=== PATIENT | female | born 1945 | race Asian ===

== ENCOUNTER 2022-07-02 12:06 | Observation (INO) | payer OTHER ==
[2022-07-02 12:19] VITALS: BMI 27.1
[2022-07-02] MEDS ORDERED: dilTIAZem HCL 50 MG/10 ML - 10 ML VIAL IVPUSH ONE ×2 (12:36→12:54)
[2022-07-02] MEDS ORDERED: dilTIAZem HCL 50 MG/10 ML - 10 ML VIAL ONE (12:36)
[2022-07-02] MEDS ORDERED: dilTIAZem HCL 30 MG TABLET ONE (12:46)
[2022-07-02] MEDS ORDERED: dilTIAZem HCL 30 MG TABLET PO ONE (12:48)
[2022-07-02 13:05] LABS: BASO % 0.7 % (0-2.0); EOS % 0.2 % (0-4.5); HEMATOCRIT 37.5 % (32.4-45.2); HEMOGLOBIN 12.5 GM/dL (10.7-15.3); MCH 28.9 pg (25.7-33.7); MCHC 33.3 g/dl (32.0-36.0); MEAN CELL VOLUME 86.7 fl (80-96); MEAN PLT VOLUME 7.8 fl (7.5-11.1); MONO % 4.7 % (3.8-10.2); NEUT % 82.4 % (42.8-82.8); PLATELET COUNT 330 10^3/uL (134-434); RBC 4.32 M/mm3 (3.60-5.2); RDW 14.5 % (11.6-15.6)
[2022-07-02 13:11] LABS: PROTHROMBIN TIME (PATIENT) 11.6 SEC (9.7-13.0)
[2022-07-02 13:30] LABS: POTASSIUM 4.6 mmol/L (3.5-5.1)
[2022-07-02 13:32] LABS: ALBUMIN 3.8 g/dl (3.4-5.0); BLOOD UREA NITROGEN 20.2 mg/dL (7-18); CALCIUM 8.7 mg/dL (8.5-10.1); MAGNESIUM 2.1 mg/dL (1.8-2.4)
[2022-07-02 13:35] LABS: CREATININE 1.2 mg/dL (0.55-1.3)
[2022-07-02 13:37] LABS: BILIRUBIN,TOTAL 1.1 mg/dL (0.2-1); TOT PROT 7.8 g/dl (6.4-8.2)
[2022-07-02 13:40] LABS: N-TERMINAL BNP 5599.1 pg/ml (5-450)
[2022-07-02] MEDS ORDERED: ASPIRIN 325 MG ENTERIC COATED TABLET (FP) PO ONE (13:47)
[2022-07-02] MEDS ORDERED: ASPIRIN 325 MG ENTERIC COATED TABLET (FP) ONE (14:00)
[2022-07-02] MEDS ORDERED: LISINOPRIL 20 MG TABLET PO ONE ×2 (15:16→15:19)
[2022-07-02] MEDS ORDERED: LISINOPRIL 20 MG TABLET ONE (15:21)
[2022-07-02] MEDS ORDERED: FUROSEMIDE 40 MG/4 ML INJECTABLE VIAL IVPUSH ONE (18:15)
[2022-07-02] MEDS ORDERED: FUROSEMIDE 40 MG/4 ML INJECTABLE VIAL ONE (18:24)
[2022-07-02] MEDS ORDERED: APIXABAN 5 MG TABLET PO SCH (22:00)
[2022-07-02] MEDS ORDERED: APIXABAN 2.5 MG TABLET PO SCH (22:00)
[2022-07-03] MEDS: dilTIAZem HCL 30 MG TABLET PO SCH ×2 (00:45→11:52)
[2022-07-03] MEDS: INSULIN SLIDING SCALE (NOVOLOG) 1 VIAL SQ SCH ×3 (00:46→11:53)
[2022-07-03 06:52] VITALS: TEMP 99
[2022-07-03 08:43] LABS: BASO % 1.3 % (0-2.0); EOS % 2.1 % (0-4.5); HEMATOCRIT 37.3 % (32.4-45.2); HEMOGLOBIN 12.7 GM/dL (10.7-15.3); LYMPH % 25.9 % (8-40); MCH 29.2 pg (25.7-33.7); MEAN PLT VOLUME 8.1 fl (7.5-11.1); MONO % 8.6 % (3.8-10.2); NEUT % 62.1 % (42.8-82.8); PLATELET COUNT 317 10^3/uL (134-434); RBC 4.34 M/mm3 (3.60-5.2); RDW 14.1 % (11.6-15.6); WHITE BLOOD COUNT 8.5 K/mm3 (4.0-10.0)
[2022-07-03 08:56] LABS: CHLORIDE 111 mmol/L (98-107); POTASSIUM 4.1 mmol/L (3.5-5.1); SODIUM 143 mmol/L (136-145)
[2022-07-03 08:58] LABS: CALCIUM 8.8 mg/dL (8.5-10.1)
[2022-07-03 08:59] LABS: ANION GAP 5 MMOL/L (8-16); BLOOD UREA NITROGEN 35.2 mg/dL (7-18); CO2 27 mmol/L (21-32); GLUCOSE,RANDOM 121 mg/dL (74-106)
[2022-07-03 09:02] LABS: CREATININE 1.6 mg/dL (0.55-1.3)
[2022-07-03 09:04] LABS: CHOLESTEROL 222 mg/dL (50-200)
[2022-07-03 09:06] LABS: LDL CHOLESTEROL (ONLY SJRH) 140 mg/dL (5-100)
[2022-07-03 09:08] LABS: HDL CHOLESTEROL 57 mg/dL (40-60)
[2022-07-03] MEDS ORDERED: FUROSEMIDE 40 MG/4 ML INJECTABLE VIAL IVPUSH SCH (10:00)
[2022-07-03] MEDS ORDERED: ASPIRIN COATED 81 MG TABLET.EC PO SCH (10:00)
[2022-07-03 13:39] VITALS: BP 140/91; PULSE 97; RESP 22
== END 2022-07-03 14:10 | disposition left against medical advice (07) ==
LOC: JER 12:06 → INTOOBSV 16:07 → JERBED 16:07 → UNDOADMOB 16:07 → JERBED 18:13
PROVIDERS: ADMIT Internal Medicine; ATTEND Internal Medicine
PROC: 3E033GC Introduction of Other Therapeutic Substance into Peripheral Vein, Percutaneous Approach (ICD-10-PCS; principal; 2022-07-02)
DX: I48.91 Unspecified atrial fibrillation (principal); N63.0 Unspecified lump in unspecified breast; I16.0 Hypertensive urgency; F32.A Depression, unspecified; Z88.0 Allergy status to penicillin; J90 Pleural effusion, not elsewhere classified; Z29.8 Encounter for other specified prophylactic measures; R73.9 Hyperglycemia, unspecified
CPT/HCPCS: 0241U-QW; 36415; 71045-TC-FY; 71275-TC; 80048; 80053; 80061; 82550; 83036; 83735; 83880; 84443; 84484; 85025; 85610; 93005; 93010; 96365; 96367; 96375; 96376; 99285-25; G0378; Q9967

== ENCOUNTER 2022-07-09 14:20 | Inpatient (IN) | payer OTHER ==
[2022-07-09 14:36] VITALS: BMI 25.0
[2022-07-09] MEDS ORDERED: APIXABAN 2.5 MG TABLET PO ONE (15:26)
[2022-07-09] MEDS ORDERED: METOPROLOL TARTRATE 5 MG/5 ML VIAL IVPUSH ONE (15:28)
[2022-07-09] MEDS ORDERED: APIXABAN 2.5 MG TABLET ONE (15:35)
[2022-07-09] MEDS ORDERED: METOPROLOL TARTRATE 5 MG/5 ML VIAL ONE (15:35)
[2022-07-09] MEDS ORDERED: metoPROLOL SUCCINATE 25 MG TAB.SR.24H (FP) PO ONE (15:49)
[2022-07-09] MEDS ORDERED: METOPROLOL TARTRATE 25 MG TABLET (FP) ONE (15:49)
[2022-07-09 16:24] LABS: BASO % 1.5 % (0-2.0); EOS % 0.4 % (0-4.5); HEMATOCRIT 34.3 % (32.4-45.2); HEMOGLOBIN 11.4 GM/dL (10.7-15.3); LYMPH % 19.7 % (8-40); MCH 28.7 pg (25.7-33.7); MCHC 33.3 g/dl (32.0-36.0); MEAN CELL VOLUME 86.3 fl (80-96); MEAN PLT VOLUME 8.2 fl (7.5-11.1); MONO % 5.9 % (3.8-10.2); NEUT % 72.5 % (42.8-82.8); PLATELET COUNT 294 10^3/uL (134-434); RBC 3.97 M/mm3 (3.60-5.2); RDW 14.4 % (11.6-15.6); WHITE BLOOD COUNT 6.9 K/mm3 (4.0-10.0)
[2022-07-09 16:35] LABS: ACTIVATED PTT 29.6 SECONDS (25.2-36.5); INR 1.1 (0.83-1.09); PROTHROMBIN TIME (PATIENT) 12.7 SEC (9.7-13.0)
[2022-07-09] MEDS ORDERED: DEXAMETHASONE SOD PHOSPHATE 10 MG/1 ML VIAL IVPUSH ONE (16:40)
[2022-07-09] MEDS ORDERED: IPRATROPIUM BR 0.02% 0.5 MG/2.5 ML VIAL.NEB. NEB ONE ×2 (16:40→16:45)
[2022-07-09 16:45] LABS: POTASSIUM 4.5 mmol/L (3.5-5.1)
[2022-07-09] MEDS ORDERED: MAGNESIUM SULF 50% (8.12 MEQ/2 ML-1 GM VIAL) IVPB ONE (16:45)
[2022-07-09] MEDS ORDERED: DEXAMETHASONE SOD PHOSPHATE 10 MG/1 ML VIAL ONE (16:45)
[2022-07-09] MEDS ORDERED: MAGNESIUM SULFATE IN WATER 2 GM/50 ML IVPB IVPB ONE (16:46)
[2022-07-09 16:47] LABS: ALBUMIN 3.4 g/dl (3.4-5.0); CALCIUM 8.3 mg/dL (8.5-10.1)
[2022-07-09 16:50] LABS: CREATININE 1.3 mg/dL (0.55-1.3)
[2022-07-09 16:51] LABS: BILIRUBIN,TOTAL 1.1 mg/dL (0.2-1)
[2022-07-09 16:55] LABS: N-TERMINAL BNP 8937.3 pg/ml (5-450)
[2022-07-09] MEDS: APIXABAN 5 MG TABLET PO SCH (22:56)
[2022-07-10] MEDS ORDERED: LORazepam 2 MG/ML SDV VIAL IM ONE (03:59)
[2022-07-10] MEDS ORDERED: HALOPERIDOL LACTATE 5 MG/ML IM ONE (04:14)
[2022-07-10] MEDS ORDERED: LORazepam 2 MG/ML SDV VIAL IVPUSH ONE (04:16)
[2022-07-10] MEDS ORDERED: ALBUTEROL SO4 2.5/IPRATROPIUM 0.5 INH SOL 3 ML VIAL.NEB. NEB ONE (04:21)
[2022-07-10] MEDS ORDERED: LORazepam 2 MG/ML SDV VIAL IVPUSH PRN ×2 (04:24→19:05)
[2022-07-10 07:51] LABS: BASO % 0.3 % (0-2.0); HEMATOCRIT 33.6 % (32.4-45.2); HEMOGLOBIN 11.5 GM/dL (10.7-15.3); LYMPH % 11.4 % (8-40); MCH 29.5 pg (25.7-33.7); MCHC 34.2 g/dl (32.0-36.0); MEAN CELL VOLUME 86.4 fl (80-96); MEAN PLT VOLUME 8.7 fl (7.5-11.1); MONO % 5.3 % (3.8-10.2); PLATELET COUNT 274 10^3/uL (134-434); RDW 14.1 % (11.6-15.6); WHITE BLOOD COUNT 6.2 K/mm3 (4.0-10.0)
[2022-07-10 08:11] LABS: POTASSIUM 4.9 mmol/L (3.5-5.1)
[2022-07-10 08:14] LABS: MAGNESIUM 2.9 mg/dL (1.8-2.4)
[2022-07-10 08:18] LABS: PHOSPHOROUS 5.7 mg/dL (2.5-4.9)
[2022-07-10 08:25] LABS: CALCIUM 8.9 mg/dL (8.5-10.1)
[2022-07-10 08:26] LABS: BLOOD UREA NITROGEN 39.8 mg/dL (7-18)
[2022-07-10 08:29] LABS: CREATININE 1.8 mg/dL (0.55-1.3)
[2022-07-10] MEDS: APIXABAN 5 MG TABLET PO SCH ×2 (10:19→22:04)
[2022-07-10] MEDS: amLODIPine BESYLATE 2.5 MG TABLET (FP) PO SCH (11:27)
[2022-07-10] MEDS: ALBUTEROL SO4 2.5/IPRATROPIUM 0.5 INH SOL 3 ML VIAL.NEB. NEB SCH ×3 (11:35→20:16)
[2022-07-10] MEDS: methylPREDNISolone NA SUCC 40 MG/1 ML VIAL IVPUSH SCH ×2 (12:09→17:50)
[2022-07-10] MEDS ORDERED: FUROSEMIDE 40 MG/4 ML INJECTABLE VIAL IVPUSH SCH (18:30)
[2022-07-11] MEDS: methylPREDNISolone NA SUCC 40 MG/1 ML VIAL IVPUSH SCH ×2 (03:19→09:39)
[2022-07-11 07:07] LABS: HEMATOCRIT 32.2 % (32.4-45.2); HEMOGLOBIN 10.9 GM/dL (10.7-15.3); MCH 29.1 pg (25.7-33.7); MEAN CELL VOLUME 85.7 fl (80-96); MEAN PLT VOLUME 7.6 fl (7.5-11.1); PLATELET COUNT 284 10^3/uL (134-434); RBC 3.76 M/mm3 (3.60-5.2); RDW 14.6 % (11.6-15.6); WHITE BLOOD COUNT 11.6 K/mm3 (4.0-10.0)
[2022-07-11] MEDS: ALBUTEROL SO4 2.5/IPRATROPIUM 0.5 INH SOL 3 ML VIAL.NEB. NEB SCH (07:30)
[2022-07-11 07:32] LABS: POTASSIUM 4.7 mmol/L (3.5-5.1)
[2022-07-11 07:44] LABS: CALCIUM 8.9 mg/dL (8.5-10.1)
[2022-07-11 07:45] LABS: ALBUMIN 3.4 g/dl (3.4-5.0); BLOOD UREA NITROGEN 48.2 mg/dL (7-18); MAGNESIUM 2.5 mg/dL (1.8-2.4)
[2022-07-11 07:48] LABS: CREATININE 1.6 mg/dL (0.55-1.3); PHOSPHOROUS 3.5 mg/dL (2.5-4.9)
[2022-07-11 07:49] LABS: BILIRUBIN,TOTAL 0.5 mg/dL (0.2-1)
[2022-07-11] MEDS: amLODIPine BESYLATE 2.5 MG TABLET (FP) PO SCH (09:39)
[2022-07-11] MEDS: APIXABAN 5 MG TABLET PO SCH ×2 (09:39→21:14)
[2022-07-11] MEDS: ALBUTEROL SO4 2.5/IPRATROPIUM 0.5 INH SOL 3 ML VIAL.NEB. NEB PRN (20:10)
[2022-07-12 08:22] LABS: HEMATOCRIT 30.6 % (32.4-45.2); HEMOGLOBIN 10.4 GM/dL (10.7-15.3); MCH 29.3 pg (25.7-33.7); MEAN CELL VOLUME 86.2 fl (80-96); PLATELET COUNT 261 10^3/uL (134-434); RBC 3.55 M/mm3 (3.60-5.2); RDW 14.5 % (11.6-15.6); WHITE BLOOD COUNT 12.9 K/mm3 (4.0-10.0)
[2022-07-12 08:37] LABS: ALBUMIN 3.1 g/dl (3.4-5.0); BLOOD UREA NITROGEN 41.6 mg/dL (7-18); CALCIUM 8.6 mg/dL (8.5-10.1); MAGNESIUM 2.3 mg/dL (1.8-2.4)
[2022-07-12 08:40] LABS: CREATININE 1.3 mg/dL (0.55-1.3)
[2022-07-12 08:41] LABS: PHOSPHOROUS 3.6 mg/dL (2.5-4.9)
[2022-07-12 08:42] LABS: BILIRUBIN,TOTAL 0.4 mg/dL (0.2-1); TOT PROT 6.4 g/dl (6.4-8.2)
[2022-07-12] MEDS: amLODIPine BESYLATE 2.5 MG TABLET (FP) PO SCH (09:29)
[2022-07-12] MEDS: methylPREDNISolone NA SUCC 40 MG/1 ML VIAL IVPUSH SCH (09:30)
[2022-07-12] MEDS: APIXABAN 5 MG TABLET PO SCH ×2 (09:30→22:05)
[2022-07-12] MEDS: LISINOPRIL 5 MG TABLET PO SCH (13:53)
[2022-07-12] MEDS: ALBUTEROL SO4 2.5/IPRATROPIUM 0.5 INH SOL 3 ML VIAL.NEB. NEB PRN (20:24)
[2022-07-13 05:42] VITALS: RESP 20
[2022-07-13 07:21] LABS: HEMATOCRIT 35.3 % (32.4-45.2); HEMOGLOBIN 11.9 GM/dL (10.7-15.3); MCH 29.2 pg (25.7-33.7); MCHC 33.9 g/dl (32.0-36.0); MEAN CELL VOLUME 86.4 fl (80-96); MEAN PLT VOLUME 8.1 fl (7.5-11.1); PLATELET COUNT 303 10^3/uL (134-434); RBC 4.08 M/mm3 (3.60-5.2); RDW 14.4 % (11.6-15.6); WHITE BLOOD COUNT 17.6 K/mm3 (4.0-10.0)
[2022-07-13 08:08] LABS: POTASSIUM 4.4 mmol/L (3.5-5.1)
[2022-07-13 08:13] LABS: BLOOD UREA NITROGEN 38.5 mg/dL (7-18); CALCIUM 8.5 mg/dL (8.5-10.1)
[2022-07-13 08:17] LABS: CREATININE 1.3 mg/dL (0.55-1.3)
[2022-07-13] MEDS: ALBUTEROL SO4 2.5/IPRATROPIUM 0.5 INH SOL 3 ML VIAL.NEB. NEB PRN (08:17)
[2022-07-13] MEDS: LISINOPRIL 5 MG TABLET PO SCH (09:41)
[2022-07-13] MEDS: APIXABAN 5 MG TABLET PO SCH ×2 (09:41→22:14)
[2022-07-13] MEDS: methylPREDNISolone NA SUCC 40 MG/1 ML VIAL IVPUSH SCH (09:41)
[2022-07-13 09:57] LABS: EPI CELLS 0 /uL (0-25.1); HYALINE CASTS 0 /uL (0-3.1); URINE APPEARANCE CLEAR; URINE BACTERIA 128 /uL (0-1359); URINE BILIRUBIN NEGATIVE (NEGATIVE); URINE COLOR YELLOW; URINE GLUCOSE (UA) NEGATIVE (NEGATIVE); URINE KETONE NEGATIVE (NEGATIVE); URINE LEUK ESTERASE 2+ (NEGATIVE); URINE NITRITE NEGATIVE (NEGATIVE); URINE PROTEIN NEGATIVE (NEGATIVE); URINE RBC 50 /uL (0-23.9); URINE UROBILINOGEN 0.2 mg/dL (0.2-1.0); URINE WBC 561 /uL (0-25.8)
[2022-07-13] MEDS ORDERED: dilTIAZem HCL 30 MG TABLET PO ONE ×2 (12:02→22:00)
[2022-07-14] MEDS: methylPREDNISolone NA SUCC 40 MG/1 ML VIAL IVPUSH SCH (09:00)
[2022-07-14] MEDS: APIXABAN 5 MG TABLET PO SCH (09:00)
[2022-07-14] MEDS: LISINOPRIL 5 MG TABLET PO SCH (09:00)
[2022-07-14] MEDS ORDERED: REGADENOSON 0.4 MG/5 ML PRE-FILLED SYRINGE IVPUSH ONE ×2 (09:15→10:00)
[2022-07-14 16:46] VITALS: BP 152/70; PULSE 85; TEMP 98.3
== END 2022-07-14 17:09 | disposition home or self-care (01) | DRG 291 ==
LOC: JER 14:20 → JERBED 15:22 → J4W 21:28
PROVIDERS: ADMIT Internal Medicine; ATTEND Internal Medicine
DX: I13.0 Hypertensive heart and chronic kidney disease with heart failure and stage 1 through stage 4 chronic kidney disease, or unspecified chronic kidney disease (principal); G93.41 Metabolic encephalopathy; I50.33 Acute on chronic diastolic (congestive) heart failure; I24.8 Other forms of acute ischemic heart disease; N17.9 Acute kidney failure, unspecified; N39.0 Urinary tract infection, site not specified; N18.9 Chronic kidney disease, unspecified; F20.9 Schizophrenia, unspecified; F31.9 Bipolar disorder, unspecified; I25.10 Atherosclerotic heart disease of native coronary artery without angina pectoris; I48.91 Unspecified atrial fibrillation; Z91.148 Patient's other noncompliance with medication regimen for other reason; R94.31 Abnormal electrocardiogram [ECG] [EKG]; R73.03 Prediabetes
CPT/HCPCS: 0241U-QW; 36415; 71045-TC-FY; 76856-TC; 78452-TC; 80048; 80053; 80061; 81003; 83036; 83735; 83880; 84100; 84443; 84484; 85025; 85027; 85610; 85730; 87086; 87186; 93005; 93010; 93017; 93306-TC; 94010; 94640; 94761; 99285-25; A9502; J1100; J2785

== ENCOUNTER → 2022-08-19 | Day surgery (SDC) | payer OTHER | END | disposition home or self-care (01) | LOC: FRADUS-SUR 11:23 | PROVIDERS: ATTEND Family Medicine | PROC: 0HBV3ZX Excision of Bilateral Breast, Percutaneous Approach, Diagnostic (ICD-10-PCS; principal; 2022-08-19) | DX: C50.412 Malignant neoplasm of upper-outer quadrant of left female breast (principal); Z17.1 Estrogen receptor negative status [ER-]; N60.31 Fibrosclerosis of right breast; N63.10 Unspecified lump in the right breast, unspecified quadrant; N63.23 Unspecified lump in the left breast, lower outer quadrant | CPT/HCPCS: 19083; 19084; 87899; 88305-TC; 88342-TC; A4648 ==

== ENCOUNTER 2022-10-13 16:30 | Emergency (ER) | payer OTHER ==
[2022-10-13 16:42] VITALS: BP 137/79; PULSE 101; RESP 20; TEMP 98.1; BMI 24.4
[2022-10-13 18:48] LABS: EOS % 0.6 % (0-4.5); HEMATOCRIT 36.6 % (32.4-45.2); HEMOGLOBIN 11.9 GM/dL (10.7-15.3); LYMPH % 18.5 % (8-40); MCH 26.8 pg (25.7-33.7); MCHC 32.6 g/dl (32.0-36.0); MEAN CELL VOLUME 82.3 fl (80-96); MEAN PLT VOLUME 7.6 fl (7.5-11.1); MONO % 8.2 % (3.8-10.2); NEUT % 71.7 % (42.8-82.8); PLATELET COUNT 352 10^3/uL (134-434); RBC 4.44 M/mm3 (3.60-5.2); RDW 16.4 % (11.6-15.6); WHITE BLOOD COUNT 8.3 K/mm3 (4.0-10.0)
[2022-10-13 18:53] LABS: INR 1.89 (0.83-1.09); PROTHROMBIN TIME (PATIENT) 21.8 SEC (9.7-13.0)
[2022-10-13 19:09] LABS: CALCIUM 8.7 mg/dL (8.5-10.1)
[2022-10-13 19:11] LABS: ALBUMIN 3.7 g/dl (3.4-5.0); BLOOD UREA NITROGEN 26.8 mg/dL (7-18); MAGNESIUM 2.1 mg/dL (1.8-2.4)
[2022-10-13 19:14] LABS: CREATININE 1.5 mg/dL (0.55-1.3)
[2022-10-13 19:15] LABS: BILIRUBIN,TOTAL 1.2 mg/dL (0.2-1); TOT PROT 7.1 g/dl (6.4-8.2)
[2022-10-13 19:18] LABS: N-TERMINAL BNP 5674.2 pg/ml (5-450)
== END 2022-10-13 18:35 | disposition left against medical advice (07) ==
LOC: JER 16:30
DX: R60.0 Localized edema (principal); M79.89 Other specified soft tissue disorders; R06.00 Dyspnea, unspecified
CPT/HCPCS: 36415; 71045-TC-FY; 80053; 83735; 83880; 84484; 85025; 85610; 85730; 93005; 93010; 99285-25